=== PATIENT | male | born 1995 | race Two or more races ===

== ENCOUNTER 2022-07-27 14:58 | Emergency (ER) | payer BC ==
[~2022-07-27] VITALS: Ht 188 cm; Wt 88.0 kg
[2022-07-27 15:09] VITALS: BP 131/70
[2022-07-27] MEDS ORDERED: PENICILLIN G BENZATHINE 2.4 MMU/4 ML ML IM ONE (15:19)
[2022-07-27] MEDS ORDERED: DEXAMETHASONE SOLN 5 MG/5 ML UDC ONE (15:19)
[2022-07-27] MEDS: PENICILLIN G BENZATHINE 2.4 MMU/4 ML ML IM ONE (15:26)
[2022-07-27] MEDS: DEXAMETHASONE SOLN 5 MG/5 ML UDC PO ONE (15:26)
--- NOTE | 2022-07-27 15:31 | NUR ---
medicated as ordered. pt discharge home. stable condition.
== END 2022-07-27 15:32 | disposition home or self-care (01) ==
LOC: ER 15:06
DX: J02.9 Acute pharyngitis, unspecified (principal)
CPT/HCPCS: 99283; 96372; J0558; J8540